=== PATIENT | female | born 1985 | race Caucasian/White ===

== ENCOUNTER 2016-12-28 08:45 | Emergency (ER) | payer MEDICAID ==
[2016-12-28] MEDS ORDERED: KETOROLAC TROMETHAMINE 30 MG/ML VIAL ONE (09:10)
[2016-12-28] MEDS ORDERED: HYDROmorphone HCL 1 MG/ML SYR ONE (09:10)
[2016-12-28] MEDS ORDERED: ONDANSETRON HCL 4 MG/2 ML VIAL ONE ×2 (09:10→16:55)
[2016-12-28 09:14] LABS: BASOPHILS 0.5 % (0.0-2.0); EOSINOPHILS 1.5 % (0.0-6.0); EOSINOPHILS# 0.1 X 10^3uL (0.0-0.4); HEMATOCRIT 42.9 % (36.0-48.0); HEMOGLOBIN 14.9 g/dL (12.0-16.0); LYMPHOCYTES 21.7 % (20.0-40.0); LYMPHOCYTES# 1.1 X 10^3uL (0.8-3.8); MEAN CELL VOLUME 89.9 fL (80.0-100.0); MEAN CORPUS. HGB CONCENTRATION 34.7 g/dL (32.0-36.0); MEAN CORPUSCULAR HEMOGLOBIN 31.2 pg (29.0-35.0); MEAN PLATELET VOLUME 8.2 fL (7.4-10.4); MONOCYTES 5.3 % (2.0-10.0); MONOCYTES# 0.3 X 10^3uL (0.2-1.0); NEUTROPHILS# 3.7 X 10^3uL (2.6-6.7); PLATELET COUNT 233 X 10^3uL (130-440); RED BLOOD COUNT 4.77 X 10^6uL (4.20-6.10); WHITE BLOOD COUNT 5.2 X 10^3uL (3.9-10.7)
[2016-12-28 09:21] LABS: BLOOD UREA NITROGEN 20 mg/dL (7-17); CALCIUM 9.7 mg/dL (8.4-10.2); CHLORIDE 103 mmol/L (98-107); CREATININE 0.6 mg/dL (0.5-1.0); EST GLOMERULAR FILTRATION RATE > 60 mL/min; GLUCOSE 94 mg/dL (70-100); POTASSIUM 3.8 mmol/L (3.5-5.1); SODIUM 139 mmol/L (137-145)
--- NOTE | 2016-12-28 13:10 | CT REPORT ---
HISTORY: Abdomen pain mid to lower COMPARISON: None. TECHNIQUE: This examination was performed using automated exposure control, adjustment of mA or kV according to patient size, and/or use of iterative reconstruction technique. Multiple contiguous axial images were obtained from the lung bases through the pubic symphysis following administration of intravenous con trast. 100cc Omnipaque 300 contrast. FINDINGS: The visualized lung parenchyma and cardiac structures are unremarkable. Abdomen/pelvis: The liver is normal in appearance without a mass or evidence of intrahepatic ductal d ilatation. The gallbladder is unremarkable, there is no cholelithiasis or pericholecystic fluid. Th e spleen is normal in appearance. There is no pancreatic mass or ductal dilatation. The adrenal glands are unremarkable. The right an d left kidneys are normal in appearance. No mass or hydronephrosis is noted. The bowel is unremarkable given the lack of oral contrast. No findings of obstruction. The appendix i s difficult to identify. Within the pelvis there is a moderate amount of free fluid. A heterogeneous area in the right adnexal region measures up to 3.6 cm. It is unclear if this is related to the ovary, or possibly developing abscess related to appendicitis or tubo-ovarian abscess. The left adnexal region is unremarkable. Ova nika torsion cannot be excluded. Vascular structures of the abdomen and pelvis are unremarkable. No pathologic adenopathy is sierra ntified. No suspicious bony lesions are seen. IMPRESSION: Abnormality in the right adnexal region with a heterogeneous masslike area measuring up to 3.6 cm. Di fferential considerations would include tubo-ovarian abscess, ovarian torsion, periappendiceal absces s or less likely complex ovarian cyst or mass. Moderate free fluid/hemorrhage in the pelvis. Appendix is not clearly demonstrated. Report discussed with Dr. Jacobsen. Final Electronic Signature: This report was electronically signed by Rick Hillman MD on 12/28/2016 1: 08 PM. juan /
[2016-12-28] MEDS ORDERED: FENTANYL 100 MCG/2 ML VIAL ONE (13:37)
--- NOTE | 2016-12-28 14:13 | ER NURSING DOCUMENTATION ---
Nurse's Notes [facility] Name:Abril Kimball Age:31 yrs Sex:Female :1985 Arrival Date:12/28/2016 Time:08:45 Bed3 Private MD:Deyanira [facility] Diagnosis:Pelvic Pain-: Acute;Ruptured Ovarian Cyst-Vs. other etiology Presentation: 12/28 08:46 Presenting complaint: Patient states: pt is having significant abd cramping post st intercourse this AM. Pain has been going on for about 45 min. pt denies any vaginal d/c charge with this pain. Transition of care: Home. 08:46 Method Of Arrival: Private Vehicle st 08:53 Acuity: JOHNATHAN 2 st Triage Assessment: 08:46 General: Appears uncomfortable, writhing in pain. Behavior is cooperative. Pain: st Complains of pain in abdomen Pain currently is 10 out of 10 on a pain scale. Pain: Quality of pain is described as crampy, Pain began 45 min ago. Cardiovascular: No deficits noted. Respiratory: No deficits noted. GI: Abdomen is non- distended Abd is soft in right upper quadrant and left upper quadrant Abdomen is tender to palpation in suprapubic area, right lower quadrant and left lower quadrant Guarding noted in suprapubic area, right lower quadrant and left lower quadrant Denies nausea. : Denies vaginal bleeding. 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 st Historical: - Allergies: Chocolate; - PMHx: DEPRESSION; eptopic preg; - PSHx: cyct removal; D & C; - Tetanus: < 10 years. - Ebola Screening: : Patient denies exposure to infectious person. Patient denies travel to an Ebola-affected area in the 21 days before illness onset. . - Social history: Smoking status: Patient states was never smoker of tobacco. Patient uses alcohol marijuana. Screenin:14 Infectious Disease Risk None. Abuse screen: Denies threats or abuse. Denies injuries st from another. pt feels safe at home. Nutritional screening: No deficits noted. Assessment: 09:54 General: pt is drowsy but feeling better she states she is still having some minor st cramps that come and go but she is much better now.. 10:27 General: pt is sleeping.. st 11:47 General: pt helped to sit up cramping came back with position change. Dr. Monsalve st informed. . 12:46 General: pt states her pain is coming back. pt states she feels miserable. . st Vital Signs: 08:51 BP 107 / 60 (auto/); Pulse 83; Resp 20; Temp 98.0; st 08:52 Pulse 86 MON; Resp 15; Pulse Ox 96% ; st 09:15 Pain 4/10; st 09:22 Pulse Ox 87% on R/A; Pain 1/10; st 09:22 BP 87 / 61 (auto/); st 09:27 Pulse 47 MON; Resp 15; Pulse Ox 99% ; st 09:30 BP 92 / 51 (auto/); st 09:32 Pulse 45 MON; Resp 15; Pulse Ox 100% ; st 09:54 Pain 2/10; st 10:00 BP 97 / 50 (auto/); st 10:02 Pulse 48 MON; Resp 16; Pulse Ox 100% ; st 10:30 BP 90 / 47 (auto/); st 10:32 Pulse 48 MON; Resp 11; Pulse Ox 99% ; st 11:00 BP 91 / 47 (auto/); st 11:02 Pulse 45 MON; Resp 11; Pulse Ox 100% ; st 11:04 BP 94 / 52 (auto/); st 11:07 Pulse 52 MON; Resp 16; Pulse Ox 93% ; st 11:30 BP 91 / 59 (auto/); st 11:32 Pulse 51 MON; Resp 14; Pulse Ox 94% ; st 11:55 BP 88 / 50 Sitting (auto/); st 11:57 Pulse 50 MON; Resp 14; Pulse Ox 92% on R/A; st 12:01 BP 95 / 59 (auto/); st 12:02 Pulse 51 MON; Resp 12; Pulse Ox 94% ; st 12:45 BP 97 / 54 (auto/); st 12:46 Pain 5/10; st 12:47 Pulse 46 MON; Resp 12; Pulse Ox 100% ; st 13:54 Pain 7/10; st 13:57 Pulse 52 MON; Resp 14; Pulse Ox 100% ; st 14:00 BP 100 / 50 (auto/); st Erik Coma Score: 13:36 Eye Response: spontaneous(4). Verbal Response: oriented(5). Motor Response: obeys cd commands(6). Total: 15. ED Course: 08:46 Patient arrived in ED. ama 08:46 Valuables Remains with patient Patient has correct armband on for positive st identification. Placed in gown. Bed in low position. Call light in reach. Side rails up X 1. 08:46 Cardiac Monitoring On for Nurse Monitoring only. Pulse Ox - RN Monitoring Only NIBP On st - RN Monitoring Only. 08:47 [facility] Private [facility]. ama 08:53 Jessica Perez RN is Primary Nurse. st 08:[address] 08:57 Shane Monsalve MD is Attending Physician. cd 09:04 Inserted peripheral IV: 20 gauge in left antecubital area and blood collected. st 09:22 Oxygen Oxygen administration via nasal cannula @ 2L/min. st 11:06 [facility] is Referral Physician. cd 12:[address] lindy 12:45 Patient moved back from [place]. lindy Administered Medications: 09:04 Drug: Dilaudid 0.5 mg; Route: IVP; Site: left antecubital; st 11:10 Follow up: Response: Pain is decreased st 09:04 Drug: Zofran 4 mg; Route: IVP; Infused Over: 2 mins; Site: left antecubital; st 11:10 Follow up: Response: Nausea is decreased st 09:04 Drug: Toradol 30 mg; Route: IVP; Site: left antecubital; st 11:10 Follow up: Response: Pain is decreased st 09:07 Drug: NS 0.9% 1000 ml; Route: IV; Rate: bolus; Site: left antecubital; st 10:30 Follow up: IV Status: Completed infusion; IV Intake: 1000ml st 09:18 Drug: Dilaudid 0.5 mg; Route: IVP; Site: left antecubital; st 09:37 Follow up: Response: Pain is decreased st 11:10 Drug: NS 0.9% 1000 ml; Route: IV; Rate: bolus; Site: left antecubital; st 11:58 Follow up: IV Status: Completed infusion; IV Intake: 1000ml st 13:29 Drug: fentaNYL (PF) 25 mcg; Route: IVP; Site: left antecubital; st 13:54 Follow up: Response: Pain is increased st 13:53 Drug: fentaNYL (PF) 25 mcg; Route: IVP; Site: left antecubital; st Intake: 10:30 IV: 1000ml; Total: 1000ml. st 11:58 IV: 1000ml; Total: 2000ml. st Outcome: 11:07 Discharge ordered by . to 13:46 ER care complete, transfer ordered by . to 14:03 Transferred: Patient will be transferred to: [facility]. Facility st Acceptance Time: December 28, 2016 at 12:45 Patient's face sheet was faxed to accepting facility. Face Sheet included patient's name, address, age, gender, contact information and insurance information. Patient will be transported by: [facility] ground. Report called to: Myke PRUITT Nurse and Physician Charting and Notes were sent to Accepting Facility. All tests and/or procedures with results, if applicable, were sent to accepting facility. 14:03 Condition: guarded 14:03 Instructed on need for transfer 14:13 Patient [address] the ED. st Signatures: Jessica Perez, RN RN Shane Burgess MD MD cd Abbott, Ryan Ely, Reg Reg ama
--- NOTE | 2016-12-28 14:14 | ER PHYSICIAN DOCUMENTATION ---
Physician Documentation [facility] Name:Abril Kimball Age:31 yrs Sex:Female :1985 Arrival Date:12/28/2016 Time:08:45 Bed3 Private MD:Deyanira, [facility] ED PhysicianGricelShane Disposition: 12/28 13:47 Chart complete. cd Disposition: 12/28/16 13:46 Transfer ordered to [facility]. Diagnosis are Pelvic Pain - : Acute, Ruptured Ovarian Cyst - Vs. other etiology. - Reason for transfer: Specialty. - Accepting physician is Jaime Downs MD, [facility] ED MD. - Condition is Fair. - Problem is new. - Symptoms have improved. COBRA Form completed? Yes Transfer - Mode of Transportation Ambulance - Notes: Ibuprofen 600mg by mouth every 6 hours with food for 3 - 4 days. Rest and drink plenty of fluids....follow up with Deyanira paz in a few days HPI: 09:00 This 31 yrs old Female presents to ER via Private Vehicle with complaints of cd Abdominal Pain. 09:00 The patient presents with abdominal pain in the lower abdomen, and pelvis. Onset: The cd symptoms/episode began/occurred acutely, just prior to arrival, while having sexual intercourse with her . The symptoms do not radiate. Associated signs and symptoms: Pertinent positives: anorexia, nausea, Pertinent negatives: blood in stools, chest pain, diarrhea, dysuria, fever, hematuria, vaginal discharge, vomiting, vomiting blood. The symptoms are described as achy, crampy. Severity of pain: At its worst the pain was severe a 10 / 10 in the emergency department the pain is unchanged is a 10 / 10. Risk factors for ectopic : intrauterine device (IUD) use, ectopic . The patient has experienced a previous episode. 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 st Historical: - Allergies: Chocolate; - PMHx: DEPRESSION; eptopic preg; - PSHx: cyct removal; D & C; - Tetanus: < 10 years. - Ebola Screening: : Patient denies exposure to infectious person. Patient denies travel to an Ebola-affected area in the 21 days before illness onset. . - Social history: Smoking status: Patient states was never smoker of tobacco. Patient uses alcohol marijuana. ROS: 13:35 Constitutional: Positive for poor PO intake, Negative for chills, fever. cd 13:35 Abdomen/GI: Positive for abdominal pain, nausea, abdominal cramps, anorexia, of the suprapubic area, Negative for vomiting, diarrhea, abdominal distension, hematemesis, black/tarry stool, rectal bleeding. 13:35 : Positive for pelvic pain, Negative for urinary frequency, hematuria, flank pain, burning with urination, vaginal bleeding, vaginal discharge, missed period. 13:35 All other systems are negative. Exam: 13:36 ENT: Nares patent. No nasal discharge, no septal abnormalities noted. Tympanic cd membranes are normal and external auditory canals are clear. Oropharynx with no redness, swelling, or masses, exudates, or evidence of obstruction, uvula midline. Mucous membranes dry Neck: Trachea midline, no thyromegaly or masses palpated, and no cervical lymphadenopathy. Supple, full range of motion without nuchal rigidity, or vertebral point tenderness. No Meningismus. Chest/axilla: Normal chest wall appearance and motion. Nontender with no deformity. No lesions are appreciated. Skin: Warm, dry with normal turgor. Normal color with no rashes, no lesions, and no evidence of cellulitis. MS/ Extremity: Pulses equal, no cyanosis. Neurovascular intact. Full, normal range of motion. 13:36 Neuro: Awake and alert, GCS 15, oriented to person, place, time, and situation. cd Cranial nerves II-XII grossly intact. Motor strength 5/5 in all extremities. Sensory grossly intact. Cerebellar exam normal. Normal gait. 13:36 Constitutional: The patient appears alert, awake, non-diaphoretic, non-toxic, well developed, well nourished, anxious, in obvious distress, severely distressed. 13:36 Cardiovascular: Rate: normal, Rhythm: regular, Pulses: no pulse deficits are appreciated, Heart sounds: normal. 13:36 Respiratory: the patient does not display signs of respiratory distress, Respirations: normal, no acute changes, Breath sounds: are normal, clear throughout. 13:36 Abdomen/GI: Inspection: abdomen appears normal, Bowel sounds: active, Palpation: severe abdominal tenderness, in the suprapubic area, mass, is not appreciated, rebound tenderness, is appreciated in the suprapubic area, voluntary guarding, is elicited in the suprapubic area, right lower quadrant and left lower quadrant, involuntary guarding, is not appreciated, no appreciated organomegaly, Indicators: McBurney's point is not tender, Davidson's sign is negative. 13:36 Back: pain, is absent, CVA tenderness, is absent. 13:36 : CVA tenderness, is absent, Rectal exam: is not applicable. Vital Signs: 08:51 BP 107 / 60 (auto/); Pulse 83; Resp 20; Temp 98.0; st 08:52 Pulse 86 MON; Resp 15; Pulse Ox 96% ; st 09:15 Pain 4/10; st 09:22 Pulse Ox 87% on R/A; Pain 1/10; st 09:22 BP 87 / 61 (auto/); st 09:27 Pulse 47 MON; Resp 15; Pulse Ox 99% ; st 09:30 BP 92 / 51 (auto/); st 09:32 Pulse 45 MON; Resp 15; Pulse Ox 100% ; st 09:54 Pain 2/10; st 10:00 BP 97 / 50 (auto/); st 10:02 Pulse 48 MON; Resp 16; Pulse Ox 100% ; st 10:30 BP 90 / 47 (auto/); st 10:32 Pulse 48 MON; Resp 11; Pulse Ox 99% ; st 11:00 BP 91 / 47 (auto/); st 11:02 Pulse 45 MON; Resp 11; Pulse Ox 100% ; st 11:04 BP 94 / 52 (auto/); st 11:07 Pulse 52 MON; Resp 16; Pulse Ox 93% ; st 11:30 BP 91 / 59 (auto/); st 11:32 Pulse 51 MON; Resp 14; Pulse Ox 94% ; st 11:55 BP 88 / 50 Sitting (auto/); st 11:57 Pulse 50 MON; Resp 14; Pulse Ox 92% on R/A; st 12:01 BP 95 / 59 (auto/); st 12:02 Pulse 51 MON; Resp 12; Pulse Ox 94% ; st 12:45 BP 97 / 54 (auto/); st 12:46 Pain 5/10; st 12:47 Pulse 46 MON; Resp 12; Pulse Ox 100% ; st 13:54 Pain 7/10; st 13:57 Pulse 52 MON; Resp 14; Pulse Ox 100% ; st 14:00 BP 100 / 50 (auto/); st [place] Coma Score: 13:36 Eye Response: spontaneous(4). Verbal Response: oriented(5). Motor Response: obeys cd commands(6). Total: 15. MDM: 08:58 Patient medically screened. cd 09:50 Data interpreted: Pulse oximetry: on room air is 99 %. Interpretation: normal. cd 10:00 Differential diagnosis: appendicitis, Dysmenorrhea, Ectopic , Endometriosis, cd non-specific abd pain, Ovarian Torsion, Tubal Ovarian Abcess, Ruptured Ovarian Cyst. 10:15 Data reviewed: vital signs, nurses notes, old medical records, and as a result, I will cd continue to observe the patient, administer IV fluids, NS bolus, NS maintenence, prescribe pain medication, Dilaudid, Toradol. 13:40 Counseling: I had a detailed discussion with the patient and/or guardian regarding: the cd historical points, exam findings, and any diagnostic results supporting the discharge/admit diagnosis, lab results, radiology results, the need to transfer to another facility, for higher level of care, [facility] does not immediately have the required specialist. 13:42 Response to treatment: the patient's symptoms have markedly improved after treatment, cd patient is well hydrated. but continues to have severe pelvic pain with any movement. Unable to get patient sitting up due to severe pain and decreased BP. 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 13:43 Physician consultation: Jaime Downs MD was called at 13:20, was contacted at 13:22, regarding admission, to [facility] Emergency Department , consult, patient's condition, need to come to ED to see patient, need to evaluate the patient as soon as possible, and will see patient in ED, shortly, later today, after a discussion of the case, a recommendation for transfer for higher level of care is made. 12/28 09:15 Order name: CBC AUTO DIF, MDIF/RMOR IF IND; Complete Time: 10:07 EDMS 12/28 09:16 Interpretation: Normal. cd 12/28 09:22 Order name: BASIC METABOLIC PANEL; Complete Time: 10:07 EDMS 12/28 09:27 Interpretation: Normal. cd 12/28 09:31 Order name: HCG, SERUM; Complete Time: 10:07 EDMS 12/28 10:07 Interpretation: Normal. cd 12/28 13:11 Order name: CAT SCAN; ABD/PEL W [id number]; Complete Time: 13:51 EDMS 12/28 09:22 Order name: Oxygen; Complete Time: 09:22 st Dispensed Medications: 09:04 Drug: Dilaudid 0.5 mg; Route: IVP; Site: left antecubital; st 11:10 Follow up: Response: Pain is decreased st 09:04 Drug: Zofran 4 mg; Route: IVP; Infused Over: 2 mins; Site: left antecubital; st 11:10 Follow up: Response: Nausea is decreased st 09:04 Drug: Toradol 30 mg; Route: IVP; Site: left antecubital; st 11:10 Follow up: Response: Pain is decreased st 09:07 Drug: NS 0.9% 1000 ml; Route: IV; Rate: bolus; Site: left antecubital; st 10:30 Follow up: IV Status: Completed infusion; IV Intake: 1000ml st 09:18 Drug: Dilaudid 0.5 mg; Route: IVP; Site: left antecubital; st 09:37 Follow up: Response: Pain is decreased st 11:10 Drug: NS 0.9% 1000 ml; Route: IV; Rate: bolus; Site: left antecubital; st 11:58 Follow up: IV Status: Completed infusion; IV Intake: 1000ml st 13:29 Drug: fentaNYL (PF) 25 mcg; Route: IVP; Site: left antecubital; st 13:54 Follow up: Response: Pain is increased st 13:53 Drug: fentaNYL (PF) 25 mcg; Route: IVP; Site: left antecubital; st Signatures: Jessica Perez, RN RN Shane Burgess MD MD cd
[2016-12-28] MEDS ORDERED: FENTANYL 250 MCG/5 ML VIAL ONE (16:54)
== END 2016-12-28 14:13 | disposition short-term general hospital (02) ==
LOC: ER 08:45
DX: R10.2 Pelvic and perineal pain (principal); E86.0 Dehydration; Z97.5 Presence of (intrauterine) contraceptive device; Z87.42 Personal history of other diseases of the female genital tract; Z99.89 Dependence on other enabling machines and devices; Z99.81 Dependence on supplemental oxygen; Z74.3 Need for continuous supervision
CPT/HCPCS: 74177; 80048; 84703; 85025; 96361; 96374; 96375; 99285; A0425; A0427; J1170; J1885; J2405

== ENCOUNTER 2017-01-02 06:35 | Emergency (ER) | payer MEDICAID ==
[2017-01-02] MEDS ORDERED: ONDANSETRON HCL 4 MG/2 ML VIAL ONE ×2 (06:57→07:35)
[2017-01-02 07:01] LABS: BASOPHIL# 0.1 X 10^3uL (0.0-0.1); BASOPHILS 0.8 % (0.0-2.0); EOSINOPHILS 0.2 % (0.0-6.0); LYMPHOCYTES 9.8 % (20.0-40.0); LYMPHOCYTES# 0.7 X 10^3uL (0.8-3.8); MEAN CELL VOLUME 89.7 fL (80.0-100.0); MEAN CORPUS. HGB CONCENTRATION 34.9 g/dL (32.0-36.0); MEAN CORPUSCULAR HEMOGLOBIN 31.3 pg (29.0-35.0); MEAN PLATELET VOLUME 7.8 fL (7.4-10.4); MONOCYTES 2.9 % (2.0-10.0); MONOCYTES# 0.2 X 10^3uL (0.2-1.0); NEUTROPHILS 86.3 % (54.0-75.0); NEUTROPHILS# 6.6 X 10^3uL (2.6-6.7); PLATELET COUNT 253 X 10^3uL (130-440); RED BLOOD COUNT 4.46 X 10^6uL (4.20-6.10); RED CELL DISTRIBUTION WIDTH 11.5 % (11.5-14.5); WHITE BLOOD COUNT 7.6 X 10^3uL (3.9-10.7)
[2017-01-02 07:06] LABS: BLOOD UREA NITROGEN 8 mg/dL (7-17); CALCIUM 10.2 mg/dL (8.4-10.2); CHLORIDE 103 mmol/L (98-107); CREATININE 0.6 mg/dL (0.5-1.0); EST GLOMERULAR FILTRATION RATE > 60 mL/min; GLUCOSE 93 mg/dL (70-100); POTASSIUM 3.9 mmol/L (3.5-5.1); SODIUM 137 mmol/L (137-145)
[2017-01-02] MEDS ORDERED: HYDROmorphone HCL 1 MG/ML SYR ONE (08:06)
--- NOTE | 2017-01-02 09:57 | ER PHYSICIAN DOCUMENTATION ---
Physician Documentation [facility] Name:Abril Kimball Age:31 yrs Sex:Female :1985 Arrival Date:01/02/2017 Time:06:35 Bed1 Private MD: Shane Garrett Disposition: 01/02/17 09:38 Discharged to Home/Self Care. Impression: Intractable Vomiting, Dehydration, Abdominal Pain, Unspecified, Ruptured Ovarian Cyst - : 5 days ago; s/p Laparosopy. - Condition is Fair. - Discharge Instructions: DEHYDRATION (6y-Adult), VOMITING (6y-Adult), Abdomen - ABDOMINAL PAIN, Unknown Cause, (Female). - Prescriptions for Zofran 4 mg Oral - take 1 tablet by ORAL route every 6 hours; 10 tablet. - Medical Reconciliation form form. - Follow up: Private Physician; When: 4- 6 days; Reason: Recheck today's complaints, Continuance of care. - Problem is new. - Symptoms are resolved. - Notes: Zofran for nausea or vomiting... Drink frequent small sips of water or Gatorade throughout the day. HPI: 01/02 06:45 This 31 yrs old Female presents to ER via Private Vehicle with complaints of cd Nausea/Vomiting. 06:45 The patient presents to the emergency department with nausea, that is severe, with cd vomiting, that is intermittent, described as clear fluid, without any complaints of abdominal pain. Onset: The symptom(s)/episode began/occurred acutely, this morning, at 03:00. Possible causes: The patient had a ruptured Ovarian Cyst on Friday, 5 days ago. She had a lot of Pelvic fluid and was transferred to another hospital for [facility] consultation. She was taken to the OR and underwent Abdominal Laparoscopy. The free fluid and blood were removed. She was observed overnight and did well post-op. She has had minimal to no pain, but has been dealing with nausea this morning. She denies fever or chills. Associated signs and symptoms: Pertinent positives: anorexia, nausea, vomiting, Pertinent negatives: abdominal pain, fever, GI bleeding, vaginal discharge. Severity of symptoms: At their worst the symptoms were moderate in the emergency department the symptoms are unchanged. The patient has been recently seen at the [facility] Emergency Department, last week, see above. Historical: - Allergies: Chocolate; - Home Meds: 1. None - PMHx: DEPRESSION; eptopic preg; Pelvic Pain - : Acute (December 28, 2016); Ruptured Ovarian Cyst - Vs. other etiology (December 28, 2016); - PSHx: cyct removal; D & C; - Tetanus: < 10 years. - Ebola Screening: : Patient negative for fever greater than or equal to 101.5 degrees Fahrenheit, and additional compatible Ebola Virus Disease symptoms. - Immunization history: Flu Vaccine < 1 year. - Social history: Smoking status: Patient states was never smoker of tobacco. ROS: 07:27 ENT: Negative for injury, pain, epistaxis and discharge. cd Cardiovascular: Negative for chest pain, palpitations, edema and pleuritic pain. Respiratory: Negative for shortness of breath, dyspnea on exertion, cough, sputum production, wheezing, hemoptysis and pleuritic chest pain. Back: Negative for injury, pain or muscle spasms. : Negative for injury, bleeding, discharge, dysuria, frequency, urgency and swelling. MS/Extremity: Negative for injury, deformity, edema, calf tenderness, pain or coldness. Skin: Negative for injury, rash, itching and discoloration. 07:27 Neuro: Negative for headache, weakness, numbness, tingling, and seizure. cd 07:27 Constitutional: Positive for poor PO intake, Negative for chills, fever. 07:27 Abdomen/GI: Positive for nausea, vomiting, anorexia, Negative for abdominal pain, diarrhea, abdominal distension, hematemesis, black/tarry stool, rectal bleeding. 07:27 All other systems are negative. Exam: MS/ Extremity: Pulses equal, no cyanosis. Neurovascular intact. Full, normal range of motion. 07:28 Neuro: Awake and alert, GCS 15, oriented to person, place, time, and situation. cd Cranial nerves II-XII grossly intact. Motor strength 5/5 in all extremities. Sensory grossly intact. Cerebellar exam normal. Normal gait. 07:28 Constitutional: The patient appears alert, awake, non-diaphoretic, non-toxic, well developed, well nourished, anxious, in obvious distress, moderately distressed. 07:28 ENT: Mouth: Oral mucosa: dry. 07:28 Cardiovascular: Rate: normal, Rhythm: regular, Pulses: no pulse deficits are appreciated, Heart sounds: normal. 07:28 Respiratory: the patient does not display signs of respiratory distress, Respirations: normal, no acute changes, Breath sounds: are normal, clear throughout. 07:28 Abdomen/GI: Inspection: abdomen appears normal, Bowel sounds: normal, active, Palpation: abdomen is soft and non-tender, rebound tenderness, is not appreciated, voluntary guarding, is not appreciated, involuntary guarding, is not appreciated, no appreciated organomegaly, Indicators: McBurney's point is not tender, Davidson's sign is negative. 07:28 Back: CVA tenderness, is absent. 07:28 : Bladder: is normal, Rectal exam: is not applicable. 07:28 Skin: Appearance: normal except for affected area. Vital Signs: 06:54 BP 121 / 68; Pulse 72; Resp 22; Temp 98.2; Pulse Ox 98% on R/A; Weight 64.86 kg; Height rh 5 ft. 5 in. (165.10 cm); Pain 0/10; 07:51 BP 107 / 65; Pulse 70; Pulse Ox 100% on 2 lpm NC; rh 08:00 BP 112 / 61; Pulse 49; Pulse Ox 100% ; Pain 5/10; rh 09:00 BP 109 / 54; Pulse 49; Pulse Ox 100% ; rh 09:30 BP 108 / 53; Pulse 47; Pulse Ox 100% ; Pain 2/10; rh 06:54 Body Mass Index 23.80 (64.86 kg, 165.10 cm) rh MDM: 06:39 Patient medically screened. cd 06:40 Data interpreted: Pulse oximetry: on room air is 98 %. Interpretation: normal. cd 07:00 Differential diagnosis: Intractable Nausea and vomiting s/p Laparoscopy for a ruptured cd Ovarian Cyst 5 days ago. 07:10 Data reviewed: vital signs, nurses notes, old medical records, and as a result, I will cd continue to observe the patient, administer IV fluids, NS bolus, NS maintenence, and Zofran for Nausea. 09:30 Counseling: I had a detailed discussion with the patient and/or guardian regarding: the cd historical points, exam findings, and any diagnostic results supporting the discharge/admit diagnosis, lab results, the need for outpatient follow up, for a recheck, with the patient's primary care provider, to return to the emergency department if symptoms worsen or persist or if there are any questions or concerns that arise at home. Response to treatment: the patient's symptoms have markedly improved after treatment, the patient's symptoms have resolved after treatment, the patient's condition has returned to base line, patient is well hydrated. and as a result, I will discharge patient. 01/02 07:05 Order name: CBC AUTO DIF, MDIF/RMOR IF IND EDMS 01/02 07:14 Interpretation: Normal Except: NEUTROPHILS 86.3; Mild Left Shift. 01/02 07:10 Order name: BASIC METABOLIC PANEL EDMS 01/02 07:14 Interpretation: Normal. 01/02 06:40 Order name: NPO; Complete Time: 06:45 cd Dispensed Medications: 06:49 Drug: NS 0.9% 2000 ml; Route: IV; Rate: bolus; Site: right antecubital; rh 07:27 Follow up: IV Intake: 1000ml rh 09:39 Follow up: IV Status: Completed infusion; IV Intake: 1000ml rh 06:49 Drug: Zofran 4 mg; Route: IVP; Infused Over: 2 mins; Site: right antecubital; rh 07:27 Follow up: Response: Nausea is decreased rh 07:27 Drug: Zofran 4 mg; Route: IVP; Infused Over: 2 mins; Site: right antecubital; rh 09:39 Follow up: Response: Nausea is decreased rh 07:58 Drug: Dilaudid 0.5 mg; Route: IVP; Site: right antecubital; rh 09:39 Follow up: Response: Pain is decreased rh Signatures: Shane Monsalve MD MD Abril Pérez
--- NOTE | 2017-01-02 09:57 | ER NURSING DOCUMENTATION ---
Nurse's Notes [facility] Name:Abril Kimball Age:31 yrs Sex:Female :1985 Arrival Date:01/02/2017 Time:06:35 Bed1 Private MD: Diagnosis:Intractable Vomiting;Dehydration;Abdominal Pain, Unspecified;Ruptured Ovarian Cyst-: 5 days ago; s/p Laparosopy Presentation: 01/02 06:36 Acuity: JOHNATHAN 3 06:49 Presenting complaint: Patient states: Pt has an ovarian cyst rupture on Friday. She rh has surgery and returned home Friday. She has been fine pertaining to pain, however her nausea has been severe. She is unable to take her PO medications and is actively vomiting. Transition of care: Home. 06:49 Method Of Arrival: Private Vehicle Triage Assessment: 06:51 General: Appears in no apparent distress, Behavior is cooperative. Pain: Denies pain. rh EENT: Oral mucosa is dry. Neuro: Level of Consciousness is awake, alert, obeys commands, Oriented to person, place, time, event. Cardiovascular: Capillary refill < 3 seconds. Respiratory: Airway is patent Respiratory effort is even, unlabored. GI: Abdomen is non- distended Abd is soft and non tender X 4 quads. Reports intolerance of fluids, intolerance of food, nausea, vomiting. : No deficits noted. Derm: Skin is intact, is healthy with good turgor, Skin is pink, warm & dry. Historical: - Allergies: Chocolate; - Home Meds: 1. None - PMHx: DEPRESSION; eptopic preg; Pelvic Pain - : Acute (December 28, 2016); Ruptured Ovarian Cyst - Vs. other etiology (December 28, 2016); - PSHx: cyct removal; D & C; - Tetanus: < 10 years. - Ebola Screening: : Patient negative for fever greater than or equal to 101.5 degrees Fahrenheit, and additional compatible Ebola Virus Disease symptoms. - Immunization history: Flu Vaccine < 1 year. - Social history: Smoking status: Patient states was never smoker of tobacco. Screenin:56 Infectious Disease Risk None. Abuse screen: Denies threats or abuse. Denies injuries rh from another. Nutritional screening: No deficits noted. Assessment: 06:56 See Triage Assessment done by same RN. 07:51 General: pt states her nausea is better however her abd feels "strange" and she has abd rh pain in both lower quads and the epigastric area. pt has brushing around incision sights abd is soft. . 08:38 General: pt is sleeping.. rh 09:55 General: pt states she is feeling better and would like to try to go home. . rh 13:20 General: All nursing charting done after 7 AM was done by Jessica salas Vital Signs: 06:54 BP 121 / 68; Pulse 72; Resp 22; Temp 98.2; Pulse Ox 98% on R/A; Weight 64.86 kg; Height rh 5 ft. 5 in. (165.10 cm); Pain 0/10; 07:51 BP 107 / 65; Pulse 70; Pulse Ox 100% on 2 lpm NC; rh 08:00 BP 112 / 61; Pulse 49; Pulse Ox 100% ; Pain 5/10; rh 09:00 BP 109 / 54; Pulse 49; Pulse Ox 100% ; rh 09:30 BP 108 / 53; Pulse 47; Pulse Ox 100% ; Pain 2/10; rh 06:54 Body Mass Index 23.80 (64.86 kg, 165.10 cm) rh ED Course: 06:36 Patient arrived in ED. ma1 06:36 Abril Pérez is Primary Nurse. rh 06:37 Triage completed. rh 06:39 Shane Monsalve MD is Attending Physician. cd 06:42 Notified ED Physician of patient's arrival and chief complaint. Dr. Monsalve notified. rh 06:52 Inserted peripheral IV: 20 gauge in right antecubital area and blood collected. fc 06:56 Valuables Remains with patient Patient has correct armband on for positive rh identification. Placed in gown. Bed in low position. Call light in reach. Side rails up X 1. Verbal reassurance given. Warm blanket given. Administered Medications: 06:49 Drug: NS 0.9% 2000 ml; Route: IV; Rate: bolus; Site: right antecubital; rh 07:27 Follow up: IV Intake: 1000ml rh 09:39 Follow up: IV Status: Completed infusion; IV Intake: 1000ml rh 06:49 Drug: Zofran 4 mg; Route: IVP; Infused Over: 2 mins; Site: right antecubital; rh 07:27 Follow up: Response: Nausea is decreased rh 07:27 Drug: Zofran 4 mg; Route: IVP; Infused Over: 2 mins; Site: right antecubital; rh 09:39 Follow up: Response: Nausea is decreased rh 07:58 Drug: Dilaudid 0.5 mg; Route: IVP; Site: right antecubital; rh 09:39 Follow up: Response: Pain is decreased rh Intake: 07:27 IV: 1000ml; Total: 1000ml. rh 09:39 IV: 1000ml; Total: 2000ml. rh Outcome: 09:38 Discharge ordered by . to 09:55 Discharged to home via wheelchair. 09:55 Condition: improved 09:55 Discharge instructions given to patient, Instructed on discharge instructions, follow up and referral plans. medication usage, Prescriptions given X 1. 09:56 Patient left the ED. 01/03 11:33 Discharge F/U Call: Unable to reach: left voicemail: lp Signatures: Jessica Perez RN RN st Pavlish, Lena, RN RN lp Daley, Chris, MD MD cd Hofsess, Rachel rh collins, floyd fc Add[place], [facility]
== END 2017-01-02 09:56 | disposition home or self-care (01) ==
LOC: ER 06:35
DX: R11.2 Nausea with vomiting, unspecified (principal); E86.0 Dehydration; N83.201 Unspecified ovarian cyst, right side; Z98.890 Other specified postprocedural states
CPT/HCPCS: 80048; 85025; 96361; 96374; 96375; 96376; 99284; J1170; J2405